=== PATIENT | female | born 1980 | race Caucasian/White ===

== ENCOUNTER 2017-12-25 12:26 | Emergency (ER) | payer OTHER, MEDICAID ==
[~2017-12-25] VITALS: Ht 152.4 cm; Wt 45.4 kg
[~2017-12-25 12:26] MED LIST: CALCIU; EFFEXOR XR37.5 MG PO; FLEXERIL PO; FOLIC ACID1 MG PO; GABAPENTIN 100100 MG PO; IBUPROFEN 800800 M1 PO; MOBIC15 MG PO; NUVARING VAGIN1 EACH VG; OXYCODONE HCL 55 MG PO; OXYCONTIN PO; PERCOCET 7.5-31 EACH PO; PROTONIX40 M1 PO; TOPICAL ANALGESIC TOP; ZANTAC 150MG T150 MG PO; ZOFRAN ODT4 MG DISSOLVE; [UNRECOGNIZED DRUG - OTHER]
[2017-12-25] MEDS ORDERED: LIDOCAINE1 EACH TOP (12:36)
[2017-12-25 13:06] LABS: URINE BILIRUBIN NEGATIVE (Negative); URINE BLOOD TRACE (Negative); URINE CLARITY CLEAR; URINE COLOR YELLOW; URINE GLUCOSE-RANDOM NEGATIVE (Negative); URINE KETONES TRACE (Negative); URINE LEUKOCYTES-REFLEX NEGATIVE (Negative); URINE NITRITE-REFLEX NEGATIVE (Negative); URINE PROTEIN NEGATIVE (Negative); URINE SPECIFIC GRAVITY 1.015 (1.005-1.030); URINE UROBILINOGEN 0.2 E.U./dl (0.2-1.0)
[2017-12-25 16:40] VITALS: BP 155/78
[2017-12-25] MEDS ORDERED: IBU600 MG PO (17:19)
[2017-12-25] MEDS ORDERED: ROBAXIN500 MG PO (17:19)
== END 2017-12-25 17:28 | disposition home or self-care (01) ==
LOC: M.ERS 12:26
PROVIDERS: Nurse Practitioner Family
DX: M54.16 Radiculopathy, lumbar region (principal); N89.8 Other specified noninflammatory disorders of vagina; Z91.041 Radiographic dye allergy status